=== PATIENT | male | born 1960 | race African-American/Black ===

== ENCOUNTER 2018-11-27 17:22 | Emergency (ER) | payer OTHER ==
[~2018-11-27] VITALS: Ht 175.3 cm; Wt 81.6 kg
[2018-11-27 17:36] VITALS: BP 128/88
[2018-11-27 19:29] LABS: Basophils # (auto) 0.1 uL; Basophils % (auto) 1.4 % (0.0-2.0); Eosinophils # (auto) 0.1 uL; Eosinophils % (auto) 1.5 % (0.0-7.0); Hematocrit 35.7 % (41.0-53.0); Hemoglobin 11.9 g/dL (13.5-17.5); Lymphocytes # (auto) 1.7 uL; Mean Corpuscular Hgb Conc. 33.3 g/dL (32.0-36.0); Mean Corpuscular Volume 90.2 fL (80.0-100.0); Monocytes # (auto) 0.5 uL; Neutrophils # (auto) 2.2 uL; Neutrophils % (auto) 49.1 % (37.0-80.0); Nucleated Red Blood Cells % 0.1 %; Platelet Count (auto) 202 10^3/uL (140-450); Red Blood Cells 3.96 10^6/uL (4.5-5.90); White Blood Cell 4.5 10^3/uL (4.4-10.8)
[2018-11-27 19:46] LABS: Alanine Aminotransferase 317 U/L (16-61); Albumin 3.1 g/dL (3.4-5.0); Anion Gap 9 (5-15); Blood Urea Nitrogen 7 mg/dL (7-18); Calcium 8.8 mg/dL (8.5-10.1); Carbon Dioxide 29 mmol/L (21-32); Chloride 107 mmol/L (98-107); Glucose 95 mg/dL (74-106); Magnesium 2.2 mg/dL (1.6-2.6); Potassium 4.2 mmol/L (3.5-5.1); Sodium 145 mmol/L (136-145)
[2018-11-27 19:50] LABS: Alkaline Phosphatase 120 U/L (45-117); Aspartate Aminotransferase 433 U/L (15-37); BUN/Creatinine Ratio 6.5; Bilirubin, Total 1.1 mg/dL (0.2-1.0); GFR African American 91 mL/min; GFR Non-African American 75 mL/min; Total Protein 6.3 g/dL (6.4-8.2)
== END 2018-11-27 18:57 | disposition left against medical advice (07) ==
LOC: ER 17:24
DX: R07.89 Other chest pain (principal); Z53.21 Procedure and treatment not carried out due to patient leaving prior to being seen by health care provider
CPT/HCPCS: 36415; 71046; 80053; 83735; 83880; 84484; 85025; 93005

== ENCOUNTER 2024-07-14 05:34 | Emergency (ER) | payer OTHER ==
[~2024-07-14] VITALS: Ht 175.3 cm; Wt 85.9 kg
[2024-07-14 05:44] VITALS: BP 118/77; PULSE 100; RESP 16; TEMP 98.8; O2SAT 96
--- NOTE | 2024-07-14 07:48 | ED.PDOC ---
SOB-HPI HPI Comments 64 year old male presents for L rib pain x 1 day. Onset was sudden and reports pain has been constant since. Aggravated with deep breathing. Possible cause: recently tested positive for the flu Denies recent travel Denies hx of cancer. Denies CP/SOB Chief Complaint: Rib Pain Time Seen by MD: 06:45 Primary Care Provider: [place] Reviewed notes: Nurses Notes, Medications, Allergies Information Source: Patient Mode of Arrival: Ambulatory Past Medical History PAST MEDICAL HISTORY: Denies Family History Family History: Unknown Social History Smoker: Cigarettes Alcohol: Heavy Drugs: Denies Drug Use Lives In: Home All Other Systems: Reviewed and Negative (Per HPI) Physical Exam General Appearance: No Apparent Distress, Normal HEENT: Normal ENT Inspection, Pharynx Normal, TMs Normal Neck: Full Range of Motion, Non-Tender, Normal, Normal Inspection Respiratory: Chest Non-Tender, Lungs Clear, No Accessory Muscle Use, No Respiratory Distress, Normal Breath Sounds Cardiovascular: No Edema, No JVD, No Murmur, No Gallop, Normal Peripheral Pulses, Regular Rate/Rhythm, Other (Normal on insepction. No bruising. No crepitus. TTP to L lateral rib aprox rib 8-9) Breast Exam: Deferred Gastrointestinal: No Organomegaly, Non Tender, No Pulsatile Mass, Normal Bowel Sounds, Soft Genitalia: Deferred Pelvic: Deferred Rectal: Deferred Extremities: No calf tenderness, Normal capillary refill, Normal inspection, Normal range of motion, Non-tender, No pedal edema Musculoskeletal : Apperance: Normal Neurologic: Alert, No Motor Deficits, Normal Affect, Normal Mood, No Sensory Deficits Cerebellar Function: Normal Reflexes: Normal Skin: Dry, Normal Color, Warm Lymphatic: No Adenopathy Was a procedure done? Was a procedure done?: No Differential Dx Differential Diagnosis: Anxiety, Asthma, Other (Fracture) X-Ray, Labs, Meds, VS Vital Signs Date Time Temp Pulse Resp B/P (MAP) Pulse Ox O2 Delivery O2 Flow Rate FiO2 07/14/24 05:44 98.8 100 16 118/77 (91) 96 07/14/24 05:44 98.8 100 16 118/77 (91) 96 98.8 07/14/24 05:44 16 96 Room Air* 0 21 07/14/24 05:44 100 16 96 Room Air PATIENT: EVA BLANCAS SR LACCT: [id number] UNIT: [id number] : 1960 LOC: ER ROOM / BED: / AGE / SEX: 64 / M ADM STATUS: REG ER SERVICE ORDERING PHYSICIAN: DARREL EDWARDS NP PROCEDURE(s): CXR2 - CHEST TWO VIEWS ROUTINE REASON: PNA? ORDER NUMBER(s): [id number], ACCESSION NUMBER(s): [id number] CLINICAL INFORMATION: 64 years old, Male; pneumonia. TECHNIQUE: Frontal and lateral chest radiographs were obtained. COMPARISON: None FINDINGS: Lungs: Bibasilar opacities, likely atelectasis, slightly greater in the left lung base. Cardiac: Heart size is within normal limits. Pulmonary vasculature: Unremarkable Mediastinum/kasey: Within normal limits. Bones: No evidence of acute osseous abnormality. Other: No other significant finding. IMPRESSION: Bibasilar opacities, slightly greater on the left, most likely atelectasis. No definite focal consolidation visualized. ATED BY: ED OLIVARES DO DICTATED DATE/TIME: 07/14/24742 SIGNED BY: ED OLIVARES DO SIGNED DATE/TIME: 07/14/24742 CC: X-Ray, Labs, Meds, VS Comment The patient likely has L rib pain. It is unlikely that the patient is having cardiac ischemia given the atypical nature of the pain. Aortic aneurysm or dissection, myocarditis, pericarditis, pericardial effusion, pleural effusion, pneumothorax, pneumonia are all unlikely given the patients symptomatology, vital signs, lack of risk factors and Neg. CXR. Pulmonary embolism is unlikely with the lack of tachypnea, dyspnea, hypoxia, pleuritic chest pain, and the onset, course, and duration described by the patient. Vital signs stable. No ntoxic appearing. Disposition: Discharge. Strict return precautions discussed with the patient with full understanding. Supportive care advised (rest, ice, heat, NSAIDs, stretching exercises) Massage muscles with cold pack or ice for 20 minutes 4 times per day. Usually most useful if there is swelling during the first 48 hours Heating pad on the most painful area for 20 minutes to relieve muscle spasm Sleep and the most comfortable sleeping position (usually on the side with knees bent) Light stretching, no strenuous activity, avoid frequent bending, avoid carrying heavy objects Discussed possible benefits of yoga and acupuncture Patient is stable for discharge at this time. External notes reviewed. Test results and diagnostic imaging interpreted. All diagnostic findings, discharge care, education and instructions provided Follow-up with PCP in 2 to 3 days Patient verbalized understanding and agreed to treatment plan Vital signs stable, afebrile, no acute distress noted Patient ambulatory with strong steady gait Advised to return precautions for any new or worsening symptoms, return to ER immediately for re-evaluation Patient is aware that the purpose of this visit was for an acute medical emergency requiring emergent stabilization. Chronic conditions, including malignancies have not been ruled out. Patient is instructed to follow up with PCP as directed and discharge instructions for continued care and workup. If unable to arrange follow-up, patient is to return to the emergency department for reassessment. Patient (parent or legal guardian if applicable) was given verbal and written discharge instructions and acknowledges understanding. Time of 1ST Reevaluation: 08:10 Reevaluation 1ST: Improved Patient Education/Counseling: Diagnosis, Treatment Family Education/Counseling: Diagnosis, Treatment Departure 1 Departure Time of Disposition: 08:13 Impression: Primary Impression: Rib pain Disposition: 01 HOME / SELF CARE / HOMELESS Condition: Stable e-Prescriptions Acetaminophen (Acetaminophen) 500 Mg Tab 500 MG PO Q6HP PRN for 10 Days, #40 TAB 0 Refills Prov: DARREL EDWARDS NP 07/14/24 Methocarbamol (Methocarbamol) 500 Mg Tab 500 MG PO Q8HP PRN for 10 Days, #30 TAB 0 Refills Prov: DARREL EDWARDS NP 07/14/24 Discharged With: Self Critical Care Note Critical Care Time?: No Stability Stability form required: No Heart Score Heart Score: Heart Score Response (Comments) Value History N/A 0 EKG N/A 0 Age N/A 0 Risk Factors N/A 0 Troponin N/A 0 Total 0 DARREL EDWARDS NP Jul 14, 2024 07:48
--- NOTE | 2024-07-14 07:49 | DVH ---
CLINICAL HISTORY: 64 years old, Male; left rib pain. TECHNIQUE: AP and oblique views of the left ribs were obtained. COMPARISON: None FINDINGS: No evidence of acute fracture. Left lung is clear with no pneumothorax or pleural effusion . IMPRESSION: No evidence of acute fracture in the left ribs.
[2024-07-14] MEDS ORDERED: METH-1181 PO (08:16)
[2024-07-14] MEDS ORDERED: ACET500T58 PO (08:16)
== END 2024-07-14 08:16 | disposition home or self-care (01) ==
LOC: ER 05:34
DX: R07.81 Pleurodynia (principal); F17.210 Nicotine dependence, cigarettes, uncomplicated
CPT/HCPCS: 71046; 71101

== ENCOUNTER 2025-03-31 08:37 | Inpatient (IN) | payer OTHER, MEDICARE ==
[~2025-03-31] VITALS: Ht 177.8 cm; Wt 83.0 kg
[~2025-03-31 08:37] MED LIST: ACET500T58 PO; METH-1181 PO
[2025-03-31 09:39] LABS: Hematocrit 45.0 % (41.0-53.0); Hemoglobin 15.5 g/dL (13.5-17.5); Mean Corpuscular Hemoglobin 30.0 pg (28.0-32.0); Mean Corpuscular Volume 87.3 fL (80.0-100.0); Nucleated Red Blood Cells % 0.1 %
[2025-03-31 09:50] LABS: Chloride 103 mmol/L (98-107); Potassium 3.7 mmol/L (3.5-5.1); Sodium 141 mmol/L (136-145)
--- NOTE | 2025-03-31 09:50 | ED.PDOC ---
GI ASSESSMENT HPI Comments 64 year old male presents to the ED with a chief compliant of blood in stool onset 3 days. Patient states he has been experiencing blood in stool for the past 3 days, dark stool, dark blood with no abdominal discomfort. Since last night, he began experiencing nausea/vomiting. Denies PMhx as well as abdominal pain, chest pain, dizziness, headache, blurred vision, fever, chills, dysuria, hematuria. No other symptoms or modifying factors present at this time. Chief Complaint: GI Bleed Time Seen by MD: 09:35 Primary Care Provider: [place] Reviewed Notes: Medications, Allergies Allergies: Coded Allergies: Pineapple (Verified Allergy, Severe, 11/27/18) Home Meds Active Scripts Acetaminophen (Acetaminophen) 500 Mg Tab, 500 MG PO Q6HP PRN for 10 Days, #40 TAB 0 Refills Prov:DARREL EDWARDS SUPPORT MANAGER 07/14/24 Methocarbamol (Methocarbamol) 500 Mg Tab, 500 MG PO Q8HP PRN for 10 Days, #30 TAB 0 Refills Prov:DARREL EDWARDS SUPPORT MANAGER 07/14/24 Information Source: Patient, Spouse Mode of Arrival: Ambulatory Timing: Days Duration: Since onset Prehospital treatment: None Quality: None Stool: Blood Streaked Severity: Moderate Recent: None Recent Hx of: None Pain Location: None Modifying Factors: Nothing Associated sign and symptoms: Nausea, Vomiting, Blood in Stool Past Medical History PAST MEDICAL HISTORY: Denies Surgical History: Denies all surgeries Family History Family History: Unknown Social History Smoker: Cigarettes Alcohol: Heavy Drugs: Denies Drug Use Lives In: Home Constitutional: denies: chills, diaphoresis, fatigue, fever, malaise, sweats, weakness, others EENTM: denies: blurred vision, double vision, ear bleeding, ear discharge, ear drainage, ear pain, ear ringing, eye pain, eye redness, hearing loss, mouth pain, mouth swelling, nasal discharge, nose bleeding, nose congestion, nose pain, photophobia, tearing, throat pain, throat swelling, voice changes, others Respiratory: denies: cough, hemoptysis, orthopnea, SOB at rest, shortness of breath, SOB with excertion, stridor, wheezing, others Cardiovascular: denies: chest pain, dizzy spells, diaphoresis, Dyspnea on exertion, edema, irregular heart beat, left arm pain, lightheadedness, palpitations, PND, syncope, others Gastrointestinal: reports: nausea, rectal bleeding, vomiting; denies: abdomen distended, abdominal pain, blood streaked bowels, constipated, diarrhea, dysphagia, difficulty swallowing, hematemesis, melena, poor appetite, poor fluid intake, rectal pain, others Genitourinary: denies: burning, dysuria, flank pain, frequency, hematuria, incontinence, penile discharge, penile sore, pain, testicle pain, testicle swelling, urgency, others Neurological: denies: dizziness, fainting, headache, left sided numbness, left sided weakness, numbness, paresthesia, pre-existing deficit, right sided numbness, right sided weakness, seizure, speech problems, tingling, tremors, weakness, others Musculoskeletal: denies: back pain, gout, joint pain, joint swelling, muscle pain, muscle stiffness, neck pain, others Integumetry: denies: bruises, change in color, change in hair/nails, dryness, laceration, lesions, lumps, rash, wounds, others Allergic/Immunocompromised: denies: Difficulty Healing, Frequent Infections, Hives, Itching, others Hematologic/Lymphatic: denies: anemia, blood clots, easy bleeding, easy bruising, swollen glands, others Endocrine: denies: excessive hunger, excessive sweating, excessive thirst, excessive urination, flushing, intolerance to cold, intolerance to heat, unexplained weight gain, unexplained weight loss, others Psychiatric: denies: anxiety, bipolar disorder, depression, hopeless, panic disorder, schizophrenia, sleepless, suicidal, others All Other Systems: Reviewed and Negative Physical Exam General Appearance: Normal HEENT: Normal ENT Inspection, Pharynx Normal, TMs Normal Neck: Full Range of Motion, Non-Tender, Normal, Normal Inspection Respiratory: Chest Non-Tender, Lungs Clear, No Accessory Muscle Use, No Respiratory Distress, Normal Breath Sounds Cardiovascular: No Edema, No JVD, No Murmur, No Gallop, Normal Peripheral Pulses, Regular Rate/Rhythm Breast Exam: Deferred Gastrointestinal: No Organomegaly, Non Tender, No Pulsatile Mass, Normal Bowel Sounds, Soft Genitalia: Deferred Pelvic: Deferred Rectal: Deferred Extremities: No calf tenderness, Normal capillary refill, Normal inspection, Normal range of motion, Non-tender, No pedal edema Musculoskeletal : Apperance: Normal Neurologic: Alert, horticulture instructor II-XII nml as Tested, No Motor Deficits, Normal Affect, Normal Mood, No Sensory Deficits Cerebellar Function: Normal Reflexes: Normal Skin: Dry, Normal Color, Warm Lymphatic: No Adenopathy Was a procedure done? Was a procedure done?: No GI differential Dx Differential Diagnosis: Gastroenteritis, GI hemorrhage, UTI, Dehydration X-Ray, Labs, Meds, VS Vital Signs Date Time Temp Pulse Resp B/P (MAP) Pulse Ox O2 Delivery O2 Flow Rate FiO2 03/31/25 09:56 70 16 98 Room Air* 0 21 03/31/25 09:55 98.9 70 16 153/98 (116) 98 98.9 03/31/25 08:38 99.0 79 17 142/92 96 99.0 Lab Test 03/31/25 09:19 Range/Units White Blood Count 3.8 L 4.4-10.8 10^3/uL Red Blood Count 5.15 4.5-5.90 10^6/uL Hemoglobin 15.5 13.5-17.5 g/dL Hematocrit 45.0 41.0-53.0 % Mean Corpuscular Volume 87.3 80.0-100.0 fL Mean Corpuscular Hemoglobin 30.0 28.0-32.0 pg Mean Corpuscular Hemoglobin Concent 34.4 32.0-36.0 g/dL Red Cell Distribution Width 14.7 H 11.8-14.3 % Platelet Count 216 140-450 10^3/uL Mean Platelet Volume 7.5 6.9-10.8 fL Neutrophils (%) (Auto) 45.3 37.0-80.0 % Lymphocytes (%) (Auto) 46.9 10.0-50.0 % Monocytes (%) (Auto) 4.8 0.0-12.0 % Eosinophils (%) (Auto) 1.9 0.0-7.0 % Basophils (%) (Auto) 1.1 0.0-2.0 % Neutrophils # (Auto) 1.7 1.6-8.6 10 ^3/uL Lymphocytes # (Auto) 1.8 0.4-5.4 10 ^3/uL Monocytes # (Auto) 0.2 0-1.3 10 ^3/uL Eosinophils # (Auto) 0.1 0-0.8 10 ^3/uL Basophils # (Auto) 0 0-0.2 10 ^3/uL Nucleated Red Blood Cells 0.1 % Prothrombin Time 11.7 9.3-11.8 sec Prothrombin Time INR 1.12 0.9-1.15 Activated Partial Thromboplast Time 28.5 24.5-34.5 SEC Sodium Level 141 136-145 mmol/L Potassium Level 3.7 3.5-5.1 mmol/L Chloride Level 103 98-107 mmol/L Carbon Dioxide Level 26 20-31 mmol/L Anion Gap 12 5-15 Blood Urea Nitrogen 10 9-23 mg/dL Creatinine 1.12 0.700-1.30 mg/dL Glomerular Filtration Rate Calc 73 >90 mL/min BUN/Creatinine Ratio 8.9 L 10.0-20.0 Serum Glucose 94 74-106 mg/dL Calcium Level 9.4 8.7-10.4 mg/dL Troponin I High Sensitivity < 3 L </=54 ng/L Time of 1ST Reevaluation: 10:05 Reevaluation 1ST: Unchanged Patient Education/Counseling: Diagnosis, Treatment, Prognosis Family Education/Counseling: Diagnosis, Treatment, Prognosis SEPSIS Sepsis Screen Date sepsis recognized/suspect: Mar 31, 2025 Time Sepsis recognized/suspect: 0838 Recent Procedure: No On Antibiotic Therapy: No Respiratory Rate >20: No Heart Rate >90: No Temp<36 C (96.8 F) or >38.3 C: No SBP <90 or MAP <65 mmHG: No New Acute Mental Status Change: No Is the patient on CPAP, BIPAP,: No Physician Orders Ct Ab Pel With Iv Con Only (03/31/25 09:00) Vital Signs Date Time Temp Pulse Resp B/P (MAP) Pulse Ox O2 Delivery O2 Flow Rate FiO2 03/31/25 09:56 70 16 98 Room Air* 0 21 03/31/25 09:55 98.9 70 16 153/98 (116) 98 98.9 03/31/25 08:38 99.0 79 17 142/92 96 99.0 Laboratory Tests Test 03/31/25 09:19 White Blood Count 3.8 10^3/uL (4.4-10.8) L Departure 1 Departure Time of Disposition: 11:28 (Patient presented with bright red blood per rectum that was concerning for possible appendicits, gastritis, cholecystitis, colitis, gastroenteritis, sbo, lower GI bleed, or orther possible surgical emergency. Data: 1. I ordered and reviewed the result of at least 3 labs including a CBC, BMP, and Urinalysis. 2. I independently interpreted the following tests: CT Abdomen and Pelvis is concerning for benign abdomen.Risk:This patient has a high risk of morbidity due to further diagnostic testing or treatment and may suffer from an acute abdominal process disorder. Workup reveals concern for lower GI bleed and patient should be admitted for further workup. and possible expert co nsultation. ) Impression: Primary Impression: Bright red blood per rectum Disposition: ADMITTED INPATIENT Admit to: Med Surg Condition: Guarded Critical Care Note Critical Care Time?: Yes Critical care comment: Concern for GI bleed Authorized and Performed by: Eric Chris MD Total critical care time: Approximately 38 minutes Due to a high probability of clinically significant, life threatening deterioration, the patient required my highest level of preparedness to intervene emergently and I personally spent this critical care time directly and personally managing the patient. This critical care time included obtaining a history; examining the patient; pulse oximetry; ordering and review of studies; arranging urgent treatment with development of a management plan; evaluation of patient's response to treatment; frequent reassessment; and, discussions with other providers. This critical care time was performed to assess and manage the high probability of imminent, life-threatening deterioration that could result in multi-organ failure. It was exclusive of separately billable procedures and treating other patients and teaching time. Please see my other sections and the rest of the note for further information on patient assessment and treatment. Stability Stability form required: No Heart Score Heart Score: Heart Score Response (Comments) Value History N/A 0 EKG N/A 0 Age N/A 0 Risk Factors N/A 0 Troponin N/A 0 Total 0 I personally scribed for ERIC CHRIS MD ([email or web address]) on 03/31/25 at 09:50. Electronically submitted by Mare Perdomo ([email or web address]). ERIC CHRIS MD Mar 31, 2025 09:50
[2025-03-31 09:51] LABS: Anion Gap 12 (5-15); Carbon Dioxide 26 mmol/L (20-31)
[2025-03-31 09:52] LABS: Calcium 9.4 mg/dL (8.7-10.4)
[2025-03-31 09:56] VITALS: PULSE 70; RESP 16; O2SAT 98
[2025-03-31 09:56] LABS: BUN/Creatinine Ratio 8.9 (10.0-20.0); Blood Urea Nitrogen 10 mg/dL (9-23); Glucose 94 mg/dL (74-106)
[2025-03-31 09:59] LABS: INR 1.12 (0.9-1.15); Partial Thromboplastin Time 28.5 SEC (24.5-34.5); Prothrombin Time 11.7 sec (9.3-11.8)
[2025-03-31] MEDS: IOHEXOL 300 MG/ML 100ML BOTTLE IJ ONE (10:20)
--- NOTE | 2025-03-31 10:46 | DVH ---
Exam: CT CT AB PEL WITH IV CON ONLY History: gi bleed COMPARISON: None Technique: Multidetector spiral CT of the abdomen and pelvis was performed from lung bases to pubic s ymphysis. Intravenous contrast was administered during this examination. Portal venous imaging was o btained. Axial, coronal and sagittal multiplanar reformats were performed by the technologist on a [employer] workstation. Radiation Dose : 1. Abdomen/Pelvis: CTDIvol 17.86mGy, DLP 1047.54 mGy*cm. CONTRAST: Type of contrast: Omnipaque 300 Contrast injected: 100 ml Findings: Lung Bases: No acute or significant lung base finding. Normal heart size. No pleural or pericardial effusion. Liver: The liver is normal in size. No focal lesions. Normal hepatic vascular enhancement. Gallbladder and biliary Tree: Unremarkable Spleen: Unremarkable Pancreas: The pancreas is normal in appearance without focal lesions or abnormal enhancement. Adrenal Glands: Unremarkable Kidneys: No hydronephrosis. Bladder: Unremarkable Bowel: The stomach is grossly normal in appearance. Small bowel and colon are normal in caliber and d istribution. Normal appendix is visualized in the right lower quadrant without findings of appendicit is. Ascites: Absent Lymphadenopathy: No mesenteric, retroperitoneal or periportal lymphadenopathy. Abdominal wall and Mesentery: Unremarkable. Vasculature: The visualized abdominal aorta is normal in size and caliber. Abdominal and pelvic vess els demonstrate normal enhancement. Pelvic Organs: Unremarkable Musculoskeletal: No aggressive focal bony lesions, acute fractures or dislocation. IMPRESSION: No acute abdominal or pelvic finding. No clear source for bleeding. Radiation optimization: All CT scans at this facility use at least one of these dose optimization sabrina hniques: automated exposure control mA and/or kV adjustment per patient size (includes targeted exam s where dose is matched to clinical indication) or iterative reconstruction.
[2025-03-31] MEDS: ONDANSETRON HCL 4 MG/2 ML VIAL IV ONE (12:12)
[2025-03-31] MEDS: MORPHINE SULFATE 4 MG/ML SYR/VIAL IV ONE (12:13)
[2025-03-31] MEDS ORDERED: HYDROcodone-ACET 5/325MG TAB PO PRN (13:45)
[2025-03-31] MEDS ORDERED: ACETAMINOPHEN 325 MG TAB PO PRN (13:45)
[2025-03-31] MEDS ORDERED: ONDANSETRON HCL 4 MG/2 ML VIAL IV PRN (13:45)
[2025-03-31] MEDS ORDERED: ALPRAZolam 0.5 MG TAB PO PRN ×2 (13:45→17:45)
[2025-03-31] MEDS ORDERED: DOCUSATE SOD 100 MG CAP PO PRN (13:45)
--- NOTE | 2025-03-31 13:53 | DVHHP2 ---
History of Present Illness Reason for Visit: rectal bleeding History of Present Illness Elver Galloway SR is a 64-year-old male with past medical history of PTSD, who came to the hospital for rectal bleeding. Patient states he has noticed bright red and dark red blood in the toilet when he has a bowel movement for 4 days. Patient states last night he began having abdominal pain, nausea, and vomiting. He has not eating since last night when he started vomiting. Patient states about 4 years ago he had a similar event. An EGD was completed that was inconclusive. He has not had a colonoscopy. Psych: Other (PTSD) Past Surgical History: Other (back surgery x 2) Smoke: No ALCOHOL: heavy (2 drinks/night) Drugs: Marijuana Lives: with Family Domestic Violence: Neg Review of Systems Constitutional: No: Fever, Chills, Sweats, Weakness, Malaise, Other Eyes: No: Pain, Vision change, Conjunctivae inflammation, Eyelid inflammation, Other, Redness ENT: No: Ear pain, Ear discharge, Nose pain, Nose discharge, Nose congestion, Mouth pain, Mouth swelling, Throat pain, Throat swelling, Other Respiratory: No: Cough, Dry, Shortness of breath, SOB with excertion, Wheezing, Hemoptysis, Pleuritic Pain, Sputum, Wheezing, Other Cardiovascular: No: Chest Pain, Palpitations, Orthopnea, Paroxysmal Noc. Dyspnea, Edema, Lt Headedness, Other Gastrointestinal: Nausea, Vomiting, Melena; No: Abdominal Pain, Diarrhea, Constipation, Hematochezia, Other Genitourinary: No Dysuria, No Frequency, No Incontinence, No Hematuria, No Retention, No Other Musculoskeletal: No: other, neck pain, shoulder pain, arm pain, back pain, hand pain, leg pain, foot pain Skin: No: Rash, Lesions, Jaundice, Bruising, Other Neurological: No: Weakness, Numbness, Incoordination, Change in speech, Confusion, Seizures, Other Allergies: Coded Allergies: Pineapple (Verified Allergy, Severe, 11/27/18) Exam Vital Signs Vital Signs Date Time Temp Pulse Resp B/P (MAP) Pulse Ox O2 Delivery O2 Flow Rate FiO2 03/31/25 13:14 89 14 155/94 03/31/25 13:06 98.8 98 98.8 03/31/25 09:56 Room Air* 0 21 General Appearance: Alert, Oriented X3, Cooperative, mild distress HEENT: Atraumatic, PERRLA, Other (mucous membr dry) Respiratory: Clear to auscultation, Normal air movement Cardiovascular: Regular rate, Normal S1, Normal S2 Abdominal: Normal bowel sounds, Soft, No tenderness, No hepatospenomegaly Extremities: No clubbing, No cyanosis, No edema, Normal pulses, No tenderness/swelling Skin: No rashes, No breakdown, No significant lesion Neuro: Normal gait, Normal speech, Strength at 5/5 X4 ext Psych/Mental Status: Mental status NL, Mood NL Labs/Xrays Labs Test 03/31/25 09:19 Range/Units White Blood Count 3.8 L 4.4-10.8 10^3/uL Red Blood Count 5.15 4.5-5.90 10^6/uL Hemoglobin 15.5 13.5-17.5 g/dL Hematocrit 45.0 41.0-53.0 % Mean Corpuscular Volume 87.3 80.0-100.0 fL Mean Corpuscular Hemoglobin 30.0 28.0-32.0 pg Mean Corpuscular Hemoglobin Concent 34.4 32.0-36.0 g/dL Red Cell Distribution Width 14.7 H 11.8-14.3 % Platelet Count 216 140-450 10^3/uL Mean Platelet Volume 7.5 6.9-10.8 fL Neutrophils (%) (Auto) 45.3 37.0-80.0 % Lymphocytes (%) (Auto) 46.9 10.0-50.0 % Monocytes (%) (Auto) 4.8 0.0-12.0 % Eosinophils (%) (Auto) 1.9 0.0-7.0 % Basophils (%) (Auto) 1.1 0.0-2.0 % Neutrophils # (Auto) 1.7 1.6-8.6 10 ^3/uL Lymphocytes # (Auto) 1.8 0.4-5.4 10 ^3/uL Monocytes # (Auto) 0.2 0-1.3 10 ^3/uL Eosinophils # (Auto) 0.1 0-0.8 10 ^3/uL Basophils # (Auto) 0 0-0.2 10 ^3/uL Nucleated Red Blood Cells 0.1 % Prothrombin Time 11.7 9.3-11.8 sec Prothrombin Time INR 1.12 0.9-1.15 Activated Partial Thromboplast Time 28.5 24.5-34.5 SEC Sodium Level 141 136-145 mmol/L Potassium Level 3.7 3.5-5.1 mmol/L Chloride Level 103 98-107 mmol/L Carbon Dioxide Level 26 20-31 mmol/L Anion Gap 12 5-15 Blood Urea Nitrogen 10 9-23 mg/dL Creatinine 1.12 0.700-1.30 mg/dL Glomerular Filtration Rate Calc 73 >90 mL/min BUN/Creatinine Ratio 8.9 L 10.0-20.0 Serum Glucose 94 74-106 mg/dL Calcium Level 9.4 8.7-10.4 mg/dL Troponin I High Sensitivity < 3 L </=54 ng/L Exam: CT CT AB PEL WITH IV CON ONLY Findings: Lung Bases: No acute or significant lung base finding. Normal heart size. No pleural or pericardial effusion. Liver: The liver is normal in size. No focal lesions. Normal hepatic vascular enhancement. Gallbladder and biliary Tree: Unremarkable Spleen: Unremarkable Pancreas: The pancreas is normal in appearance without focal lesions or abnormal enhancement. Adrenal Glands: Unremarkable Kidneys: No hydronephrosis. Bladder: Unremarkable Bowel: The stomach is grossly normal in appearance. Small bowel and colon are normal in caliber and distribution. Normal appendix is visualized in the right lower quadrant without findings of appendicitis. Ascites: Absent Lymphadenopathy: No mesenteric, retroperitoneal or periportal lymphadenopathy. Abdominal wall and Mesentery: Unremarkable. Vasculature: The visualized abdominal aorta is normal in size and caliber. Abdominal and pelvic vessels demonstrate normal enhancement. Pelvic Organs: Unremarkable Musculoskeletal: No aggressive focal bony lesions, acute fractures or dislocation. IMPRESSION: No acute abdominal or pelvic finding. No clear source for bleeding. SEPSIS Sepsis Screen Date sepsis recognized/suspect: Mar 31, 2025 Time Sepsis recognized/suspect: 0956 Recent Procedure: No On Antibiotic Therapy: No Respiratory Rate >20: No Heart Rate >90: No Temp<36 C (96.8 F) or >38.3 C: No SBP <90 or MAP <65 mmHG: No New Acute Mental Status Change: No Is the patient on CPAP, BIPAP,: No Physician Orders Ct Ab Pel With Iv Con Only (03/31/25 09:00) Stool Occult Blood (03/31/25 12:11) Admit (03/31/25 13:34) Code Status (03/31/25 13:34) Hydrocodone-Acet 5/325mg Tab (Verbank /32 (03/31/25 13:45) Ondansetron Hcl (Zofran) (03/31/25 13:45) Docusate Sodium Capsule (Colace Capsule) (03/31/25 13:45) Complete Blood Count (04/01/25 04:00) Comprehensive Metabolic Panel (04/01/25 04:00) Condition: Serious (03/31/25 13:34) Acetaminophen Tablet (Tylenol Tablet) (03/31/25 13:45) Clear Liq Diet (03/31/25 Dinner) * Gi Dvh Shingle Bolt Cutter (03/31/25 13:34) Vital Signs Date Time Temp Pulse Resp B/P (MAP) Pulse Ox O2 Delivery O2 Flow Rate FiO2 03/31/25 13:14 89 14 155/94 03/31/25 13:06 98.8 16 147/95 (112) 98 98.8 03/31/25 12:13 76 20 154/93 03/31/25 12:00 76 20 154/93 (113) 98 03/31/25 09:56 70 16 98 Room Air* 0 21 03/31/25 09:55 98.9 70 16 153/98 (116) 98 98.9 03/31/25 08:38 99.0 79 17 142/92 96 99.0 Laboratory Tests Test 03/31/25 09:19 White Blood Count 3.8 10^3/uL (4.4-10.8) L Medications Medications Dose Ordered Sig/Adry Route Start Time Stop Time Status Last Admin Dose Admin Morphine Sulfate 4 mg ONCE ONCE IV 03/31/25 12:15 03/31/25 12:16 DC 03/31/25 12:13 4 MG Ondansetron HCl 4 mg ONCE ONCE IV 03/31/25 12:15 03/31/25 12:16 DC 03/31/25 12:12 4 MG Assessment/Plan Assessment/Plan Assessment: Bright red blood per rectum, PTSD, ETOH dependance, Plan: Admit to Med-Surg, GI consult, clear liquid diet, Stool for occult blood, PO supplements for ETOH dependance, Home medications reconciled, Plan discussed with: Patient, Spouse My Orders Orders - MIRIAM MCINTYRE Procedure Category Date Status Time Stool Occult Blood LAB 03/31/25 Logged 12:11 Admit ADMIT 03/31/25 Transmitted 13:34 Code Status CODE 03/31/25 Transmitted 13:34 Hydrocodone-Acet PHA 03/31/25 Transmitted 5/325mg Tab (Verbank 13:45 Ondansetron Hcl PHA 03/31/25 Transmitted (Zofran) 13:45 Docusate Sodium PHA 03/31/25 Transmitted Capsule (Colace 13:45 Complete Blood Count LAB 04/01/25 Verified 04:00 Comprehensive LAB 04/01/25 Verified Metabolic Panel 04:00 Condition: Serious PETROS 03/31/25 Transmitted 13:34 Acetaminophen Tablet PHA 03/31/25 Transmitted (Tylenol Tablet) 13:45 Clear Liq Diet DIET 03/31/25 Transmitted Dinner * Gi D[facility] [employer]olt Cutter CONS 03/31/25 Transmitted 13:34 Date of Service: Mar 31, 2025 Billing Provider: MIRIAM MCINTYRE Common Visit Codes: [id number] INP/OBS CARE (MOD) MIRIAM MCINTYRE Mar 31, 2025 13:53
--- NOTE | 2025-03-31 14:40 | DVHINCON2 ---
GI Consult Consult Note GI consult note Date of Consultation: 03/31/2025 Chief Complaint: Bright red blood per rectum Referring Physician: Michael TAVERAS H&P: 64-year-old male with past medical history of PTSD, seen in ER with complains of rectal bleeding. Patient complains of red and dark blood rectally for the past four days. No abdominal pain. Patient also has nausea and vomiting yesterday mostly throwing up the food he ate denies hematemesis. Patient denies rectal pain. No history of hemorrhoids. Denies blood thinners Status post colonoscopy one year ago [facility], within normal limits per patient. But patient has had polyps in prior colonoscopies Patient admits to alcohol use and marijuana Past Medical History: PTSD Past Surgical History: Denies Social History: ALCOHOL: heavy (2 drinks/night) Drugs: Marijuana Lives: with Family Family History: Noncontributory Review of Systems: Constitutional: no fever, chill, weight loss HEENT: no eye pain, no hearing loss, no oral lesion, no scleral icterus Heart: no chest pain, no chest pressure Lung: no cough, no dyspnea with exertion Abdomen: see HPI Physical exam: General: NAD, AAOX3 Chest: lung [place] clear to auscultation Heart: RRR, no murmur Abdomen: non-distended, no tenderness to palpation, +BS Labs: Labs Test 03/31/25 09:19 Range/Units White Blood Count 3.8 L 4.4-10.8 10^3/uL Red Blood Count 5.15 4.5-5.90 10^6/uL Hemoglobin 15.5 13.5-17.5 g/dL Hematocrit 45.0 41.0-53.0 % Mean Corpuscular Volume 87.3 80.0-100.0 fL Mean Corpuscular Hemoglobin 30.0 28.0-32.0 pg Mean Corpuscular Hemoglobin Concent 34.4 32.0-36.0 g/dL Red Cell Distribution Width 14.7 H 11.8-14.3 % Platelet Count 216 140-450 10^3/uL Mean Platelet Volume 7.5 6.9-10.8 fL Neutrophils (%) (Auto) 45.3 37.0-80.0 % Lymphocytes (%) (Auto) 46.9 10.0-50.0 % Monocytes (%) (Auto) 4.8 0.0-12.0 % Eosinophils (%) (Auto) 1.9 0.0-7.0 % Basophils (%) (Auto) 1.1 0.0-2.0 % Neutrophils # (Auto) 1.7 1.6-8.6 10 ^3/uL Lymphocytes # (Auto) 1.8 0.4-5.4 10 ^3/uL Monocytes # (Auto) 0.2 0-1.3 10 ^3/uL Eosinophils # (Auto) 0.1 0-0.8 10 ^3/uL Basophils # (Auto) 0 0-0.2 10 ^3/uL Nucleated Red Blood Cells 0.1 % Prothrombin Time 11.7 9.3-11.8 sec Prothrombin Time INR 1.12 0.9-1.15 Activated Partial Thromboplast Time 28.5 24.5-34.5 SEC Sodium Level 141 136-145 mmol/L Potassium Level 3.7 3.5-5.1 mmol/L Chloride Level 103 98-107 mmol/L Carbon Dioxide Level 26 20-31 mmol/L Anion Gap 12 5-15 Blood Urea Nitrogen 10 9-23 mg/dL Creatinine 1.12 0.700-1.30 mg/dL Glomerular Filtration Rate Calc 73 >90 mL/min BUN/Creatinine Ratio 8.9 L 10.0-20.0 Serum Glucose 94 74-106 mg/dL Calcium Level 9.4 8.7-10.4 mg/dL Troponin I High Sensitivity < 3 L </=54 ng/L Imaging: CT abdomen pelvis IMPRESSION: No acute abdominal or pelvic finding. No clear source for bleeding. Assessment: GI bleed Alcohol use Positive marijuana History of PTSD Plan: Discussed with Dr. Granda - Pt will be scheduled for an EGD tomorrow 04/01/2025. Pt was informed of the risks (bleeding, infection, perforation, reaction to sedation medications and cardiopulmonary arrest) and benefit and is agreeable to undergo the procedures. Protonix and Zofran Monitor lab obtain records of colonoscopy Plan discussed with patient, family at bedside and RN Thank you for this consult Date of Service: Mar 31, 2025 Billing Provider: EMILY JAY Common Visit Codes: CONSULT ONLY Consultation Codes: [id number] CONSULT <60MIN EMILY JAY Mar 31, 2025 14:40
[2025-03-31 14:43] LABS: Alanine Aminotransferase 18.0 U/L (7-40); Albumin 4.7 g/dL (3.2-4.8); Alkaline Phosphatase 64.0 U/L (46-116); Bilirubin, Direct 0.2 mg/dL (<0.3); Bilirubin, Total 0.8 mg/dL (0.2-1.0); Total Protein 7.1 g/dL (5.7-8.2)
[2025-03-31 17:36] VITALS: BP 150/98; PULSE 58; RESP 16; TEMP 98.3; O2SAT 95
[2025-03-31] MEDS ORDERED: PRAZ2CAP2 PO (17:38)
[2025-03-31] MEDS ORDERED: DONE5TAB80 PO (17:38)
[2025-03-31] MEDS ORDERED: QUET400T13 PO (17:38)
[2025-03-31] MEDS ORDERED: TRAZ-181 PO (17:38)
[2025-03-31] MEDS ORDERED: MIRT1TAB38 PO (17:38)
[2025-03-31] MEDS ORDERED: ALPR0.5T7 PO (17:38)
[2025-03-31 17:43] VITALS: BP 150/98; PULSE 63; RESP 17; TEMP 98.3; O2SAT 95
[2025-03-31 17:58] VITALS: BP 150/98; PULSE 63; RESP 17; TEMP 98; O2SAT 95
[2025-03-31] MEDS: MIRTAZAPINE 30 MG TAB PO SCH (18:00)
[2025-03-31 20:00] VITALS: PULSE 55; RESP 16; O2SAT 96
[2025-03-31 21:00] VITALS: BP 149/92; PULSE 55; RESP 16; TEMP 98.2; O2SAT 96
[2025-03-31] MEDS: DONEPEZIL HYDROCHLORIDE 5 MG TAB PO SCH (21:46)
[2025-03-31] MEDS: ZOLPIDEM TARTRATE 5 MG TAB PO SCH (21:46)
[2025-03-31] MEDS: PRAZOSIN HCL 1 MG CAP PO SCH (21:55)
[2025-03-31] MEDS ORDERED: PRAZOSIN HCL 1 MG CAP PO SCH (22:00)
[2025-03-31] MEDS ORDERED: MIRTAZAPINE 30 MG TAB PO SCH (22:00)
[2025-03-31] MEDS ORDERED: DONEPEZIL HYDROCHLORIDE 5 MG TAB PO SCH (22:00)
[2025-04-01 05:00] VITALS: BP 135/87; PULSE 65; RESP 16; TEMP 97.7; O2SAT 98
--- NOTE | 2025-04-01 05:16 | DVH ---
CHEST RADIOGRAPH Indication: protocol for EGD Technique: Single frontal view of the chest was obtained COMPARISON: XY CHEST TWO VIEWS ROUTINE on DOS: 07/14/24, XY L RIB X RAY on DOS: 07/14/24 FINDINGS: Lines and Tubes: None. Lungs: Clear. Pleura: No effusion.No pneumothorax. Cardiomediastinal contours: Unremarkable. Bones: Unremarkable. IMPRESSION: No acute cardiopulmonary disease.
[2025-04-01 06:18] LABS: Hematocrit 43.1 % (41.0-53.0); Hemoglobin 14.6 g/dL (13.5-17.5); Mean Corpuscular Hemoglobin 29.7 pg (28.0-32.0); Mean Corpuscular Volume 87.9 fL (80.0-100.0); Nucleated Red Blood Cells % 0.2 %
[2025-04-01 06:40] LABS: Alanine Aminotransferase 17 U/L (7-40); Albumin 4.1 g/dL (3.2-4.8); Alkaline Phosphatase 57 U/L (46-116); Anion Gap 13 (5-15); BUN/Creatinine Ratio 5.8 (10.0-20.0); Calcium 9.1 mg/dL (8.7-10.4); Carbon Dioxide 26 mmol/L (20-31); Chloride 102 mmol/L (98-107); Glucose 85 mg/dL (74-106); Sodium 141 mmol/L (136-145); Total Protein 6.4 g/dL (5.7-8.2)
[2025-04-01 06:41] LABS: Bilirubin, Total 1.2 mg/dL (0.2-1.0); Blood Urea Nitrogen 6 mg/dL (9-23); Potassium 3.1 mmol/L (3.5-5.1)
[2025-04-01 09:00] VITALS: BP 159/104; PULSE 61; RESP 20; TEMP 97.4; O2SAT 98
--- NOTE | 2025-04-01 11:03 | ECG ---
[facility] Test Date: 2025-04-01 Test Time: 06:27:02 Pat Name: EVA BLANCAS Department: Room: 0271 A Gender: M Resident Athletic Trainer: INDER Haq : 1960 Requested By: JACKSON JAY Order Number: [id number] Reading MD: Measurements Intervals [place] Rate: 61 P: 42 OR: 213 QRS: -24 QRSD: 100 T: 18 QT: 448 QTc: 452 Interpretive Statements Sinus rhythm Borderline prolonged OR interval Borderline left axis deviation Please click the below link to view image of tracing.
[2025-04-01] MEDS ORDERED: PROPOFOL 10 MG/ML 20 ML IV ONE ×2 (12:44→12:56)
[2025-04-01] MEDS ORDERED: METOCLOPRAMIDE HCL 5MG/ml INJ 2ml VIAL ONE (12:56)
[2025-04-01] MEDS ORDERED: ONDANSETRON HCL 4 MG/2 ML VIAL ONE (12:56)
[2025-04-01] MEDS ORDERED: LIDOCAINE 2% (LOCAL ANESTH.) PF 5ml SDV ONE (12:56)
[2025-04-01] MEDS ORDERED: fentaNYL CITRATE 100 MCG/2 ML VL ONE (12:58)
[2025-04-01 13:00] VITALS: BP 159/94; PULSE 64; RESP 20; TEMP 97.2; O2SAT 100
[2025-04-01 13:05] VITALS: PULSE 66; RESP 12; O2SAT 100
--- NOTE | 2025-04-01 13:11 | DVHOP2 ---
Operative Report DATE OF OPERATION: 04/01/25 PROCEDURE: Upper Endoscopy with biopsy. PREOPERATIVE INDICATION: The patient is a 64 -year-old male undergoing endoscopy for GI bleed POSTOPERATIVE DIAGNOSES: 1. 2 cm sliding-type hiatal hernia with irregular squamocolumnar junction grade a to B erosive esophagitis with minimal oozing at the GE junction 2. Mild gastritis and gastropathy more prominent in the proximal stomach otherwise normal examination up to the 2nd and 3rd part of the duodenum PROCEDURE PERFORMED BY: Sean Granda GI NURSE: Hailee SCOPE: Olympus videoendoscope. ASA CLASS: 3 PREOPERATIVE MEDICATIONS: Mac sedation, Ed Grant PROCEDURE IN DETAIL: After obtaining an informed consent, the patient was placed on left lateral decubitus position. The patient was then sedated with the above medications. A bite block was placed between his teeth. The endoscope was then passed through the oropharynx, into the esophagus, and through the stomach and pylorus up to the second and third part of the duodenum. The endoscope was then withdrawn. The 2nd and 3rd part of the duodenum were normal and the duodenal bulb showed minimal duodenitis. Duodenal biopsies were obtained The pre-pyloric area antrum and body showed mild gastritis. On retroflexion there was mild to moderate gastropathy of the proximal stomach. Gastric biopsies were obtained. The endoscope was then withdrawn into the distal esophagus. Patient had a 2 cm sliding-type hiatal hernia Patient had grade A to B erosive esophagitis with some superficial oozing at the GE junction. Biopsies were obtained from this area The remaining distal and proximal esophagus and oropharynx were unremarkable. There was no other fresh or old blood in the upper GI tract The patient tolerated the procedure well without difficulty. COMPLICATIONS : None SPECIMENS: Duodenal biopsies Gastric biopsies GE junction biopsies DISPOSITION: Transfer back to the floor Stable PLAN: 1. Await for biopsy result 2. Will place pt on Protonix 40 mg bid 3. Carafate 1 g p.o. twice a day 4. Resume GI soft diet advance as tolerated 5. Continue to monitor for any recurrent bleeding, patient reports a negative colonoscopy within the last year except for small polyp removal and he was advised a repeat colonoscopy for surveillance in five years SEAN GRANDA MD Apr 01, 2025 13:11
[2025-04-01] MEDS ORDERED: PANT40TA2 PO (15:50)
[2025-04-01] MEDS ORDERED: SUCR1SUS26 PO (15:50)
--- NOTE | 2025-04-01 16:43 | DVHDS2 ---
Discharge Summary Date of Admission Mar 31, 2025 at 13:34 Date of Discharge: Apr 01, 2025 Labs/Diagnostic Data: Laboratory Results Test 04/01/25 16:00 04/01/25 05:03 03/31/25 09:19 White Blood Count 3.5 10^3/uL (4.4-10.8) Red Blood Count 4.91 10^6/uL (4.5-5.90) Hemoglobin 14.6 g/dL (13.5-17.5) Hematocrit 43.1 % (41.0-53.0) Mean Corpuscular Volume 87.9 fL (80.0-100.0) Mean Corpuscular Hemoglobin 29.7 pg (28.0-32.0) Mean Corpuscular Hemoglobin Concent 33.8 g/dL (32.0-36.0) Red Cell Distribution Width 14.7 % (11.8-14.3) Platelet Count 180 10^3/uL (140-450) Mean Platelet Volume 7.5 fL (6.9-10.8) Neutrophils (%) (Auto) 49.4 % (37.0-80.0) Lymphocytes (%) (Auto) 41.3 % (10.0-50.0) Monocytes (%) (Auto) 6.1 % (0.0-12.0) Eosinophils (%) (Auto) 2.5 % (0.0-7.0) Basophils (%) (Auto) 0.7 % (0.0-2.0) Neutrophils # (Auto) 1.7 10 ^3/uL (1.6-8.6) Lymphocytes # (Auto) 1.4 10 ^3/uL (0.4-5.4) Monocytes # (Auto) 0.2 10 ^3/uL (0-1.3) Eosinophils # (Auto) 0.1 10 ^3/uL (0-0.8) Basophils # (Auto) 0 10 ^3/uL (0-0.2) Nucleated Red Blood Cells 0.2 % Sodium Level 141 mmol/L (136-145) Potassium Level 3.1 mmol/L (3.5-5.1) Chloride Level 102 mmol/L (98-107) Carbon Dioxide Level 26 mmol/L (20-31) Anion Gap 13 (5-15) Blood Urea Nitrogen 6 mg/dL (9-23) Creatinine 1.03 mg/dL (0.700-1.30) Glomerular Filtration Rate Calc 81 mL/min (>90) BUN/Creatinine Ratio 5.8 (10.0-20.0) Serum Glucose 85 mg/dL (74-106) Calcium Level 9.1 mg/dL (8.7-10.4) Total Bilirubin 1.2 mg/dL (0.2-1.0) Aspartate Amino Transferase (AST) 24 U/L (13-40) Alanine Aminotransferase (ALT) 17 U/L (7-40) Alkaline Phosphatase 57 U/L (46-116) Total Protein 6.4 g/dL (5.7-8.2) Albumin 4.1 g/dL (3.2-4.8) Prothrombin Time 11.7 sec (9.3-11.8) Prothrombin Time INR 1.12 (0.9-1.15) Activated Partial Thromboplast Time 28.5 SEC (24.5-34.5) Direct Bilirubin 0.2 mg/dL (<0.3) Troponin I High Sensitivity < 3 ng/L (</=54) Other Laboratory Tests 04/01/25 05:03 Brief Hx & Hospital Course: 64-year-old male with a known history of chronic insomnia, PTSD, anxiety disorder presented to the hospital with bright red blood per rectum along with dark bed eventually patient was admitted. GI was consulted patient underwent EGD which shows evidence of not done on by 4% melena nurses of the down to a shunt while no every year I always given the lack 1000 on [place] two different units they do not even report told them this morning cannula put home health now they are No the the she coming should you have swab Lantus a head help me [facility] open documented as one once she would like home health. Condition at Discharge: Stable Final Diagnosis/Problems List 1. Bright red blood and dark red blood 2. Status post EGD shows evidence of 1.2 cm sliding hiatus hernia, grade B esophagitis, gastritis and gastropathy 3. Chronic insomnia 4. PTSD 5. Anxiety disorder Discharge Disposition: Home SNF Discharge Will this Physician continue t: No Discharge Instruct/Medications Diet: Cardiac 2g Na,low cholest Activity: See Comment Activity comment: No driving if on any sedated. Follow Up/Referral: Follow up with the PCP in one week Follow up with Dr. Rand Granda in 1-2 weeks for gastric sample biopsy Medications: Protonix and Carafate as prescribed New Medications: Pantoprazole Sodium Sesquihydr (Protonix) 40 Mg Tab 40 MG PO BID, #60 TAB Sucralfate (Carafate Susp) 1 Gm/10 Ml Ss 10 ML PO BID, #600 ML 1 Refill Scheduled Donepezil Hydrochloride (Donepezil Hcl), 1 TAB PO HS, (Reported) Mirtazapine (Mirtazapine Oral Disintegrating Tablet), 2 TAB PO QPM, (Reported) Pantoprazole Sodium Sesquihydr (Protonix), 40 MG PO BID Prazosin HCl (Prazosin Hydrochloride), 5 MG PO HS, (Reported) Quetiapine Fumerate (Quetiapine Fumarate), 400 MG PO HS, (Reported) Sucralfate (Carafate Susp), 10 ML PO BID Trazodone HCl (Trazodone Hydrochloride), 100 MG PO HS, (Reported) Scheduled PRN Alprazolam (Alprazolam), 1 TAB PO TID PRN, (Reported) Discontinued Medications Acetaminophen (Acetaminophen), 500 MG PO Q6HP PRN Methocarbamol (Methocarbamol), 500 MG PO Q8HP PRN Discharge Statement: "Patient was advised to return to the ER or call 911 if any headaches, dizziness, shortness of breath, chest pain, abdominal pain, bleeding, fevers, or worsening of medical condition. Patient was counseled about treatment plan, medications, possible side effects, patientverbalized understanding. All questions were answered to the best of my ability. This discharge took greater then 30 minutes in planning, reviewing documentation, counseling the patient, and discussing with other team members." ASSESSMENT ASSESSMENT Assessment 1. Bright red blood and dark red blood 2. Status post EGD shows evidence of 1.2 cm sliding hiatus hernia, grade B esophagitis, gastritis and gastropathy 3. Chronic insomnia 4. PTSD 5. Anxiety disorder Date of Service: Apr 01, 2025 Billing Provider: TANYA TREVIZO MD Common Visit Codes: [id number] DISCH DAY >30min TANYA TREVIZO MD Apr 01, 2025 16:43
[2025-04-01 17:00] VITALS: BP 163/109; PULSE 72; RESP 20; TEMP 96.5; O2SAT 98
[2025-04-01] MEDS: PANTOPRAZOLE 40 MG TAB PO SCH (17:00)
[2025-04-01] MEDS: THIAMINE HCL 100 MG TAB PO ONE (17:39)
[2025-04-01] MEDS: FOLIC ACID 1 MG TAB PO ONE (17:39)
[2025-04-01] MEDS: MULTIPLE VITAMINS W/ MINERALS TAB PO ONE (18:18)
[2025-04-01] MEDS ORDERED: SUCRALFATE 1 GM/10 ML ORAL SUSP PO SCH (22:00)
[2025-04-02] MEDS ORDERED: FOLIC ACID 1 MG TAB PO SCH (10:00)
[2025-04-02] MEDS ORDERED: MULTIPLE VITAMINS W/ MINERALS TAB PO SCH (10:00)
[2025-04-02] MEDS ORDERED: THIAMINE HCL 100 MG TAB PO SCH (10:00)
== END 2025-04-01 18:19 | disposition home or self-care (01) | DRG 382 ==
LOC: ER 08:37 → OVERFLOW 13:34 → WEST WING 16:58
PROVIDERS: ADMIT Internal Medicine; ATTEND Internal Medicine
PROC: 0DB68ZX Excision of Stomach, Via Natural or Artificial Opening Endoscopic, Diagnostic (ICD-10-PCS; 2025-04-01)
PROC: 0DB48ZX Excision of Esophagogastric Junction, Via Natural or Artificial Opening Endoscopic, Diagnostic (ICD-10-PCS; 2025-04-01)
PROC: 0DB98ZX Excision of Duodenum, Via Natural or Artificial Opening Endoscopic, Diagnostic (ICD-10-PCS; principal; 2025-04-01 12:54)
DX: K22.11 Ulcer of esophagus with bleeding (principal); K29.71 Gastritis, unspecified, with bleeding; K44.9 Diaphragmatic hernia without obstruction or gangrene; F43.10 Post-traumatic stress disorder, unspecified; K29.81 Duodenitis with bleeding; K31.9 Disease of stomach and duodenum, unspecified; F51.04 Psychophysiologic insomnia; F41.9 Anxiety disorder, unspecified; F17.210 Nicotine dependence, cigarettes, uncomplicated; F10.20 Alcohol dependence, uncomplicated; Y90.9 Presence of alcohol in blood, level not specified; Z91.018 Allergy to other foods
CPT/HCPCS: 36415; 43239; 71045; 74177; 80048; 80053; 80076; 82270; 84484; 85025; 85610; 85730; 86850; 86900; 86901; 93005; 96374; 96375; 99291; G0378; J2003; J2405; J2704